=== PATIENT | female | born 1985 | race Native Hawaiian/Other Pacific Islander ===

== ENCOUNTER 2019-02-24 08:56 | Outpatient (CLI) | payer OTHER | END 2019-02-24 23:15 | disposition home or self-care (01) | LOC: US 08:56 | DX: R10.9 Unspecified abdominal pain (principal); K76.0 Fatty (change of) liver, not elsewhere classified; E78.00 Pure hypercholesterolemia, unspecified ==

== ENCOUNTER 2019-02-28 08:28 | Outpatient (CLI) | payer OTHER | END 2019-02-28 22:17 | disposition home or self-care (01) | LOC: MRI 08:28 | DX: K76.0 Fatty (change of) liver, not elsewhere classified (principal); K76.9 Liver disease, unspecified; E78.5 Hyperlipidemia, unspecified | CPT/HCPCS: A9576 ==

== ENCOUNTER 2019-08-08 14:35 | Outpatient (CLI) | payer OTHER | END 2019-08-08 22:48 | disposition home or self-care (01) | LOC: RAD 14:35 | DX: F41.9 Anxiety disorder, unspecified (principal); Z79.899 Other long term (current) drug therapy; M54.5 Low back pain ==

== ENCOUNTER 2019-09-17 14:41 | Outpatient (CLI) | payer OTHER | END 2019-09-17 20:15 | disposition home or self-care (01) | LOC: LABW 14:41 | DX: L90.5 Scar conditions and fibrosis of skin (principal); Z79.899 Other long term (current) drug therapy | CPT/HCPCS: 36415; 82947; 83036 ==

== ENCOUNTER 2019-10-16 09:01 | Outpatient (CLI) | payer OTHER | END 2019-10-16 19:01 | disposition home or self-care (01) | LOC: MRI 09:01 | DX: K76.9 Liver disease, unspecified (principal); K76.0 Fatty (change of) liver, not elsewhere classified; E78.5 Hyperlipidemia, unspecified | CPT/HCPCS: A9576 ==

== ENCOUNTER 2019-11-01 22:04 | Emergency (ER) | payer OTHER ==
[~2019-11-01] VITALS: Ht 162.6 cm; Wt 72.6 kg
[2019-11-01 22:15] VITALS: TEMP 98.2
[2019-11-02 00:55] VITALS: BP 142/81
== END 2019-11-02 00:55 | disposition home or self-care (01) ==
LOC: ED 22:04
DX: R51 Headache (principal); H92.02 Otalgia, left ear
CPT/HCPCS: 96372; 99283; J0696; J1885

== ENCOUNTER 2019-12-12 08:23 | Outpatient (CLI) | payer OTHER | END 2019-12-12 18:57 | disposition home or self-care (01) | LOC: LAB 08:23 | DX: Z20.828 Contact with and (suspected) exposure to other viral communicable diseases (principal) | CPT/HCPCS: 87635; G2023; U00003 ==

== ENCOUNTER 2020-02-02 14:38 | Outpatient (CLI) | payer OTHER | END 2020-02-02 23:06 | disposition home or self-care (01) | LOC: LAB 14:38 | DX: Z20.828 Contact with and (suspected) exposure to other viral communicable diseases (principal) | CPT/HCPCS: 87635; G2023; U0003 ==

== ENCOUNTER 2020-02-25 23:39 | Emergency (ER) | payer OTHER ==
[~2020-02-25] VITALS: Ht 162.6 cm; Wt 68.0 kg
[2020-02-26 01:41] VITALS: BP 143/84; TEMP 98.5
== END 2020-02-26 01:41 | disposition home or self-care (01) ==
LOC: ED 23:39
DX: S09.8XXA Other specified injuries of head, initial encounter (principal); Y08.89XA Assault by other specified means, initial encounter; Y92.89 Other specified places as the place of occurrence of the external cause
CPT/HCPCS: 96372; 99283; J1885

== ENCOUNTER 2020-04-07 09:17 | Outpatient (CLI) | payer OTHER | END 2020-04-07 21:44 | disposition home or self-care (01) | LOC: MAMMO 09:17 | DX: N64.4 Mastodynia (principal); Z84.89 Family history of other specified conditions; Z12.31 Encounter for screening mammogram for malignant neoplasm of breast ==

== ENCOUNTER 2020-06-30 12:22 | Outpatient (CLI) | payer OTHER | END 2020-06-30 21:52 | disposition home or self-care (01) | LOC: LAB 12:22 | PROVIDERS: ATTEND Family Medicine | DX: U07.1 COVID-19 (principal); Z20.828 Contact with and (suspected) exposure to other viral communicable diseases | CPT/HCPCS: 87635; G2023; U0003 ==

== ENCOUNTER 2020-07-04 14:30 | Emergency (ER) | payer OTHER ==
[~2020-07-04] VITALS: Ht 162.6 cm; Wt 76.2 kg
[2020-07-04 14:49] VITALS: TEMP 98.7
[2020-07-04 15:12] LABS: PLATELET COUNT 167 K/uL (152-353)
[2020-07-04 15:25] LABS: POTASSIUM 3.9 mmol/L (3.6-5.2); SODIUM 140 mmol/L (136-145)
[2020-07-04 15:35] LABS: PARTIAL THROMBOPLASTIN TIME 24.9 SECONDS (24.5-33.6)
[2020-07-04 15:53] VITALS: BP 115/76
== END 2020-07-04 15:54 | disposition home or self-care (01) ==
LOC: ED 14:30
PROVIDERS: Hospitalist
DX: U07.1 COVID-19 (principal); J06.9 Acute upper respiratory infection, unspecified; R07.89 Other chest pain; K21.9 Gastro-esophageal reflux disease without esophagitis
CPT/HCPCS: 80053; 82550; 83880; 84484; 85027; 85379; 85610; 85730; 93005; 96374; 96375; 99283; 99284; J1100; J2405

== ENCOUNTER 2021-06-27 11:32 | Outpatient (CLI) | payer OTHER | END 2021-06-27 20:58 | disposition home or self-care (01) | LOC: LAB 11:32 | PROVIDERS: ATTEND Family Medicine | DX: Z20.822 Contact with and (suspected) exposure to COVID-19 (principal) | CPT/HCPCS: 87635; G2023; U0003 ==

== ENCOUNTER 2021-08-03 07:41 | Outpatient (CLI) | payer OTHER ==
[2021-08-03 08:06] LABS: PLATELET COUNT 298 K/uL (152-353)
== END 2021-08-03 19:22 | disposition home or self-care (01) ==
LOC: LABW 07:41
PROVIDERS: ATTEND Family Medicine
DX: J02.9 Acute pharyngitis, unspecified (principal); Z79.890 Hormone replacement therapy; R74.8 Abnormal levels of other serum enzymes; F41.9 Anxiety disorder, unspecified; E78.2 Mixed hyperlipidemia; Z83.3 Family history of diabetes mellitus
CPT/HCPCS: 36415; 80053; 80061; 81000; 83036; 84439; 84443; 85027

== ENCOUNTER 2021-09-28 14:32 | Outpatient (CLI) | payer OTHER | END 2021-09-28 19:22 | disposition home or self-care (01) | LOC: RAD 14:32 | PROVIDERS: ATTEND Family Medicine | DX: M54.2 Cervicalgia (principal); M54.10 Radiculopathy, site unspecified; R51.9 Headache, unspecified ==

== ENCOUNTER 2021-10-10 13:45 | Outpatient (CLI) | payer OTHER | END 2021-10-10 19:03 | disposition home or self-care (01) | LOC: RAD 13:45 | PROVIDERS: ATTEND Family Medicine | DX: M54.2 Cervicalgia (principal); R51.9 Headache, unspecified; H92.02 Otalgia, left ear ==

== ENCOUNTER 2022-07-12 11:44 | Outpatient (CLI) | payer OTHER | END 2022-07-12 21:36 | disposition home or self-care (01) | LOC: RAD 11:44 | PROVIDERS: ATTEND Family Medicine | DX: R31.9 Hematuria, unspecified (principal); R10.9 Unspecified abdominal pain; N39.0 Urinary tract infection, site not specified ==

== ENCOUNTER 2022-08-24 13:38 | Outpatient (CLI) | payer OTHER | END 2022-08-24 20:59 | disposition home or self-care (01) | LOC: RAD 13:38 | PROVIDERS: ATTEND Family Medicine | DX: M54.89 Other dorsalgia (principal) ==

== ENCOUNTER 2022-09-13 07:49 | Outpatient (CLI) | payer OTHER ==
[2022-09-13 08:51] LABS: PLATELET COUNT 261 K/uL (152-353)
[2022-09-13 09:10] LABS: POTASSIUM 3.9 mmol/L (3.6-5.2)
== END 2022-09-13 19:01 | disposition home or self-care (01) ==
LOC: LABW 07:49
PROVIDERS: ATTEND Family Medicine
DX: R51.9 Headache, unspecified (principal); R42 Dizziness and giddiness; R53.83 Other fatigue; E78.2 Mixed hyperlipidemia; N32.89 Other specified disorders of bladder; M54.89 Other dorsalgia; E55.9 Vitamin D deficiency, unspecified; Z84.0 Family history of diseases of the skin and subcutaneous tissue
CPT/HCPCS: 36415; 80053; 80061; 81002; 82306; 84439; 84443; 85027; 86038; 86225; 86235; 86592

== ENCOUNTER 2022-10-19 07:24 | Emergency (ER) | payer OTHER ==
[~2022-10-19] VITALS: Ht 162.6 cm; Wt 65.8 kg
[2022-10-19 07:28] VITALS: BP 116/66; TEMP 97.6
== END 2022-10-19 08:38 | disposition home or self-care (01) ==
LOC: ED 07:24
DX: M54.9 Dorsalgia, unspecified (principal); G89.29 Other chronic pain; M54.10 Radiculopathy, site unspecified
CPT/HCPCS: 96372; 99282; J1885

== ENCOUNTER 2022-11-06 08:14 | Outpatient (CLI) | payer OTHER | END 2022-11-06 19:19 | disposition home or self-care (01) | LOC: MRI 08:14 | PROVIDERS: ATTEND Family Medicine | DX: M54.89 Other dorsalgia (principal); M54.10 Radiculopathy, site unspecified; R29.898 Other symptoms and signs involving the musculoskeletal system; R39.89 Other symptoms and signs involving the genitourinary system; N32.89 Other specified disorders of bladder ==

== ENCOUNTER 2022-11-28 13:21 | Outpatient (CLI) | payer OTHER | END 2022-11-28 20:36 | disposition home or self-care (01) | LOC: MRI 13:21 | PROVIDERS: ATTEND Family Medicine | DX: M54.89 Other dorsalgia (principal); M54.10 Radiculopathy, site unspecified; R29.898 Other symptoms and signs involving the musculoskeletal system; R39.89 Other symptoms and signs involving the genitourinary system; N32.89 Other specified disorders of bladder ==

== ENCOUNTER 2023-02-15 12:51 | Outpatient (CLI) | payer OTHER | END 2023-02-15 18:51 | disposition home or self-care (01) | LOC: MAMMO 12:51 | PROVIDERS: ATTEND Family Medicine | DX: N64.4 Mastodynia (principal) | CPT/HCPCS: G0279 ==

== ENCOUNTER 2023-07-18 16:20 | Outpatient (CLI) | payer OTHER ==
[2023-07-18 16:34] LABS: PLATELET COUNT 276 K/uL (152-353)
[2023-07-18 16:46] LABS: POTASSIUM 3.9 mmol/L (3.6-5.2)
== END 2023-07-18 19:06 | disposition home or self-care (01) ==
LOC: LABW 16:20
PROVIDERS: ATTEND Nurse Practitioner Family
DX: M06.4 Inflammatory polyarthropathy (principal); M25.50 Pain in unspecified joint; M54.89 Other dorsalgia; R53.83 Other fatigue; Z79.899 Other long term (current) drug therapy
CPT/HCPCS: 36415; 80053; 85027; 85652; 86140; 86618